=== PATIENT | female | born 1990 | race Caucasian/White ===

== ENCOUNTER → 2019-02-13 | Outpatient (REF) | payer OTHER ==
[2019-02-13 16:04] LABS: ALBUMIN 3.9 GM/DL (3.2-5.2); ALT/SGPT 38 U/L (12-78); BILIRUBIN,TOTAL 0.3 MG/DL (0.2-1.0); BLOOD UREA NITROGEN 8 MG/DL (7-18); CALCIUM LEVEL 9.3 MG/DL (8.5-10.1); CARBON DIOXIDE LEVEL 28 MEQ/L (21-32); CHLORIDE LEVEL 107 MEQ/L (98-107); CREATININE FOR GFR 0.86 MG/DL (0.55-1.30); FREE T4 1.02 NG/DL (0.76-1.46); GLOMERULAR FILTRATION RATE > 60.0 (>60); GLUCOSE, FASTING 83 MG/DL (70-100); SODIUM LEVEL 141 MEQ/L (136-145); TOTAL PROTEIN 7.4 GM/DL (6.4-8.2)
[2019-02-13 16:10] LABS: HEMATOCRIT 42.1 % (36.0-47.0); HEMOGLOBIN 13.8 g/dl (12.0-15.5); MEAN CORPUSCULAR HGB CONC 32.8 g/dl (32.0-36.5); MEAN CORPUSCULAR VOLUME 85.4 fl (80.0-96.0); PLATELET COUNT, AUTOMATED 339 10^3/uL (150-450); RED BLOOD COUNT 4.93 10^6/uL (4.00-5.40); WHITE BLOOD COUNT 9.3 10^3/uL (4.0-10.0)
== END ==
LOC: M SFHCPLAZ 14:40
PROVIDERS: ATTEND Nurse Practitioner Family
DX: Z13.228 Encounter for screening for other metabolic disorders (principal); Z78.9 Other specified health status
CPT/HCPCS: 36415; 80053; 84439; 84443; 85027; 96372; G0463; J1050

== ENCOUNTER → 2019-08-15 | Outpatient (REF) | payer OTHER | LOC: M SFHCPLAZ 15:17 | PROVIDERS: ATTEND Nurse Practitioner Family | DX: Z12.4 Encounter for screening for malignant neoplasm of cervix (principal); R87.610 Atypical squamous cells of undetermined significance on cytologic smear of cervix (ASC-US) | CPT/HCPCS: 87624; 96372; G0123; G0463; J1050 ==

== ENCOUNTER → 2020-05-24 | Outpatient (CLI) | payer OTHER ==
[~2020-05-24] MED LIST: DEPO150I12 IM; IBUP80TA PO; MELA3TAB49 PO; OXYC1TAB23 PO
== END ==
LOC: M LABSMTC 08:38
PROVIDERS: ATTEND Anesthesiology
DX: Z01.812 Encounter for preprocedural laboratory examination (principal); Z20.828 Contact with and (suspected) exposure to other viral communicable diseases

== ENCOUNTER 2020-05-28 06:09 | Day surgery (SDC) | payer OTHER ==
[~2020-05-28] VITALS: Ht 165.1 cm; Wt 85.3 kg
[~2020-05-28 06:09] MED LIST changes: -IBUP80TA PO; -OXYC1TAB23 PO
[2020-05-28 07:00] LABS: HEMATOCRIT 43.3 % (36.0-47.0); HEMOGLOBIN 13.8 g/dl (12.0-15.5); MEAN CORPUSCULAR HEMOGLOBIN 27.1 pg (27.0-33.0); MEAN CORPUSCULAR HGB CONC 31.9 g/dl (32.0-36.5); MEAN CORPUSCULAR VOLUME 84.9 fl (80.0-96.0); PLATELET COUNT, AUTOMATED 346 10^3/uL (150-450); WHITE BLOOD COUNT 7.3 10^3/uL (4.0-10.0)
[2020-05-28] MEDS ORDERED: LR 1,000 ML IV ONE (07:00)
[2020-05-28] MEDS ORDERED: ROCURONIUM BROMIDE 50 MG/5 ML VIAL As Ordered ONE (07:21)
[2020-05-28] MEDS ORDERED: dexameTHASONE 4 MG/ML 1ML VIAL (J1100 PER 1MG) As Ordered ONE (07:21)
[2020-05-28] MEDS ORDERED: propofoL 200 MG/20 ML VIAL As Ordered ONE (07:21)
[2020-05-28] MEDS ORDERED: LIDOCAINE 2% 100MG/5ML SDV (FOR ANES.) As Ordered ONE (07:21)
[2020-05-28] MEDS ORDERED: ONDANSETRON 4MG/2ML VIAL As Ordered ONE (07:21)
[2020-05-28] MEDS ORDERED: MIDAZOLAM INJ 2MG/2ML VIAL (J2250 PER 1MG) As Ordered ONE (07:22)
[2020-05-28] MEDS ORDERED: fentaNYL 100 MCG/2 ML INJECTION (J3010) As Ordered ONE (07:22)
[2020-05-28 07:36] LABS: HCG, SERUM QUALITATIVE NEGATIVE (NEGATIVE)
[2020-05-28] MEDS ORDERED: BUPIVACAINE HCL 0.25% 10ML VIAL As Ordered ONE (07:51)
[2020-05-28] MEDS ORDERED: LACRILUBE (AKWA TEARS) OPHTH OINT 3.5 GM As Ordered ONE (08:16)
[2020-05-28] MEDS ORDERED: ACETAMINOPHEN 1000MG 100ML IV BTL (OFIRMEV) (J0131 PER 10MG) As Ordered ONE (08:29)
[2020-05-28] MEDS ORDERED: SUGAMMADEX SODIUM 500 MG/5 ML VIAL (BRIDION) As Ordered ONE (08:29)
[2020-05-28] MEDS ORDERED: HYDROmorphone HCL 2 MG/ML 1ML VIAL (J1170) As Ordered ONE (08:29)
[2020-05-28] MEDS ORDERED: KETOROLAC 60MG 2ML VIAL As Ordered ONE (08:30)
--- NOTE | 2020-05-28 09:18 | ROOPDOC ---
[facility] Report Of Operation Report of Operation Date of procedure: 05/28/2020 Preoperative diagnosis: Satisfied parity. Postoperative diagnosis: Same Procedure: Laparoscopic bilateral salpingectomy Anesthesia: Gen. endotracheal Estimated blood loss 10 mL IV fluids replaced 700 mL lactated Ringer's Drains: In and out catheter 200 mL of urine Complications: None Preoperative antibiotics: None indicated Specimens: Bilateral fallopian tubes Intraoperative findings: Normal size, shape, contour of the uterus. Normal adnexa/ovaries bilaterally. Procedure: The patient was counseled and consented on the risks, benefits, indications, and alternatives of the procedure. Informed consent was obtained. She was taken to the operating room with an IV running. She was placed on the operating table in the dorsal supine position. Gen. anesthesia was administered and the airway was secured without any difficulty. A timeout was performed per protocol. She was prepared and draped in the normal sterile fashion. Attention was turned to the pelvis. The bladder was drained with in and out sterile catheter. A speculum was placed into the vagina with good visualization of the cervix. A single- tooth tenaculum was placed on the anterior lip of the cervix and downward traction was applied. The cervix was sequentially dilated with Casey dilators up to a #16. A ZUMI uterine manipulator was placed without any difficulty. The single-tooth tenaculum was removed. The tenaculum sites were noted to be hemostatic. A sterile glove switch was performed. Attention was turned to the abdomen. A 5mm umbilical incision was made with the 11 blade. Through this incision, a Veress needle was placed into the intraperitoneal cavity. Intraperitoneal placement was confirmed with ease of flow of normal saline, a positive drop test and no return on aspiration. The opening pressure was 2 mmHg. The abdomen was insufflated with 2 L of CO2. The Veress needle was removed. A 5 mm laparoscopic trocar was placed under direct visualization without any difficulty, and intraperitoneal placement was confirmed. No incidental bleeding or injury was evident. The patient was placed in steep Trendelenburg. 2 additional laparoscopic port sites were placed through 5 mm incisions in the lower left quadrant. Each trocar/cannula was placed under direct visualization without any difficulty, incidental bleeding or injury. Attention was turned to the right fallopian tube. The right fallopian tube was followed out to the fimbriated end, grasped and elevated. The underlying mesosalpinx was sequentially clamped, coagulated and transected, until the level of the cornu was reached. At this level, the fallopian tube was clamped, coagulated and transected, thus amputating the fallopian tube. The fallopian tube was brought through the cannula without any difficulty and sent to pathology for permanent section. Attention was turned to the left fallopian tube. The left fallopian tube was followed out to the fimbriated end, grasped and elevated. The underlying mesosalpinx was sequentially clamped, coagulated and transected, until the level of the cornu was reached. At this level the fallopian tube was clamped, coagulated and transected, thus amputating the fallopian tube. The fallopian tube was brought to the cannula without any difficulty and sent to pathology for permanent section. Both right and left surgical sites were noted to be completely hemostatic. The gas was released from the abdomen. The patient was taken out of Trendelenburg position. The cannulas were removed. The skin incisions were closed with 4-0 Monocryl in subcuticular fashion and reinforced with Dermabond. The uterine manipulator was removed, the vagina was noted to be clear of any sponge or instrument. Sponge, needle and instrument counts were correct per protocol. The patient tolerated the entire procedure very well. She was transferred to the PACU in good and stable condition. DO EL Bahena JONATHAN R. DO May 28, 2020 09:17
[2020-05-28] MEDS ORDERED: LR 1,000 ML IV SCH ×2 (09:30→09:45)
[2020-05-28] MEDS ORDERED: fentaNYL 100 MCG/2 ML INJECTION (J3010) IV PRN (09:30)
[2020-05-28] MEDS ORDERED: ONDANSETRON 4MG/2ML VIAL IV PRN (09:30)
[2020-05-28] MEDS ORDERED: oxyCODONE 5MG TAB PO PRN (09:30)
[2020-05-28] MEDS ORDERED: IBUP80TA PO (10:55)
[2020-05-28] MEDS ORDERED: OXYC1TAB23 PO (10:56)
[2020-05-28] MEDS ORDERED: METOCLOPRAMIDE INJ 10MG/2ML VIAL (J2765 PER 1) As Ordered ONE (11:00)
[2020-05-28] MEDS ORDERED: METOCLOPRAMIDE INJ 10MG/2ML VIAL (J2765 PER 1) IV ONE (11:15)
== END 2020-05-28 11:56 | disposition home or self-care (01) ==
LOC: M SDC 06:09
PROVIDERS: ATTEND Obstetrics & Gynecology
DX: Z30.2 Encounter for sterilization (principal); R10.2 Pelvic and perineal pain; Z79.899 Other long term (current) drug therapy; F84.5 Asperger's syndrome
CPT/HCPCS: 36415; 58661; 84703; 85027; 86850; 86900; 86901; 88302; J0131; J1100; J1170; J1885; J2250; J2405; J2765; J3010

== ENCOUNTER → 2020-07-31 | Outpatient (CLI) | payer OTHER ==
[~2020-07-31] MED LIST changes: +IBUP80TA PO; +OXYC1TAB23 PO
--- NOTE | 2020-08-07 07:46 | REP ---
INDICATION: PERIUMBICAL PAIN, POST SURGERY COMPARISON: None available. TECHNIQUE: Axial noncontrast images from the lung bases to the pubic symphysis with coronal and sagittal reformations. This CT examination was performed using the following dose reduction techniques: Automated exposure control, adjustment of mA and/or kv according to the patient's size, and use of iterative reconstruction technique. FINDINGS: Lung bases are clear. Visualized heart and pericardium normal. Liver, spleen, pancreas, gallbladder, bilateral adrenal glands and kidneys are normal. The enteric system is unremarkable and without obstruction or acute inflammatory process. Normal terminal ileum and appendix identified in the right lower quadrant. 2 cm fat containing periumbilical hernia noted without acute abnormality. Pelvis demonstrates normal bladder and age-appropriate uterus/adnexa. No ascites. No free air. No adenopathy. No focal inflammatory stranding. Abdominal aorta without aneurysm. Musculoskeletal structures are intact and without acute osseous abnormality. IMPRESSION: No acute abdominopelvic pathology appreciated. 2 cm fat containing periumbilical hernia. <Electronically signed by Michael Simpson > 08/07/20 [id number]
== END ==
LOC: M RAD 14:11
PROVIDERS: ATTEND Obstetrics & Gynecology
DX: Z48.816 Encounter for surgical aftercare following surgery on the genitourinary system (principal); K42.9 Umbilical hernia without obstruction or gangrene

== ENCOUNTER → 2020-08-15 | Outpatient (CLI) | payer SELFPAY | LOC: M LABSMTC 13:05 | PROVIDERS: ATTEND Pediatrics | DX: Z20.822 Contact with and (suspected) exposure to COVID-19 (principal) ==

== ENCOUNTER → 2020-10-17 | Outpatient (REF) | payer OTHER | LOC: M SFHCWAGY 13:37 | PROVIDERS: ATTEND Obstetrics & Gynecology | DX: Z12.4 Encounter for screening for malignant neoplasm of cervix (principal) | CPT/HCPCS: 87624; G0123 ==

== ENCOUNTER → 2020-12-17 | Outpatient (CLI) | payer OTHER | LOC: M LABSMTC 09:38 | PROVIDERS: ATTEND Anesthesiology | DX: Z01.812 Encounter for preprocedural laboratory examination (principal); Z20.822 Contact with and (suspected) exposure to COVID-19 ==

== ENCOUNTER → 2020-12-18 | Outpatient (REF) | payer OTHER ==
[2020-12-18 13:58] LABS: HEMATOCRIT 46.7 % (36.0-47.0); HEMOGLOBIN 15.2 g/dl (12.0-15.5); MEAN CORPUSCULAR HEMOGLOBIN 28.1 pg (27.0-33.0); MEAN CORPUSCULAR HGB CONC 32.5 g/dl (32.0-36.5); MEAN CORPUSCULAR VOLUME 86.3 fl (80.0-96.0); PLATELET COUNT, AUTOMATED 387 10^3/uL (150-450); RED BLOOD COUNT 5.41 10^6/uL (4.00-5.40); WHITE BLOOD COUNT 9.6 10^3/uL (4.0-10.0)
[2020-12-18 14:09] LABS: BLOOD UREA NITROGEN 12 MG/DL (7-18); CALCIUM LEVEL 9.5 MG/DL (8.5-10.1); CARBON DIOXIDE LEVEL 28 MEQ/L (21-32); CHLORIDE LEVEL 105 MEQ/L (98-107); CREATININE FOR GFR 0.88 MG/DL (0.55-1.30); GLOMERULAR FILTRATION RATE > 60.0 (>60); GLUCOSE, FASTING 85 MG/DL (70-100); POTASSIUM SERUM 4.7 MEQ/L (3.5-5.1); SODIUM LEVEL 138 MEQ/L (136-145)
[2020-12-18 14:46] LABS: HEMOGLOBIN A1c 5.4 %
== END ==
LOC: M SFHCPLAZ 10:08
PROVIDERS: ATTEND Family Medicine
DX: Z01.818 Encounter for other preprocedural examination (principal); Z13.1 Encounter for screening for diabetes mellitus
CPT/HCPCS: 36415; 80048; 83036; 85027; G0463

== ENCOUNTER 2020-12-22 12:54 | Day surgery (SDC) | payer OTHER ==
[~2020-12-22] VITALS: Ht 167.6 cm; Wt 98.9 kg
[~2020-12-22 12:54] MED LIST changes: +LR 1,000 ML IV ONE; +ceFAZolin SOD 2 GM in IV 1 EA IV ONE
[2020-12-22] MEDS ORDERED: BUPIVACAINE/EPIN 0.25% 30 ML VIAL As Ordered ONE (13:44)
[2020-12-22] MEDS ORDERED: KETOROLAC 60MG 2ML VIAL As Ordered ONE (14:12)
[2020-12-22] MEDS ORDERED: dexameTHASONE 4 MG/ML 1ML VIAL (J1100 PER 1MG) As Ordered ONE (14:12)
[2020-12-22] MEDS ORDERED: propofoL 200 MG/20 ML VIAL As Ordered ONE (14:12)
[2020-12-22] MEDS ORDERED: ACETAMINOPHEN 1000MG 100ML IV BTL (OFIRMEV) (J0131 PER 10MG) As Ordered ONE (14:12)
[2020-12-22] MEDS ORDERED: MIDAZOLAM INJ 2MG/2ML VIAL (J2250 PER 1MG) As Ordered ONE (14:12)
[2020-12-22] MEDS ORDERED: ONDANSETRON 4MG/2ML VIAL As Ordered ONE (14:12)
[2020-12-22] MEDS ORDERED: ROCURONIUM BROMIDE 50 MG/5 ML VIAL As Ordered ONE (14:12)
[2020-12-22] MEDS ORDERED: LIDOCAINE 2% 100MG/5ML SDV (FOR ANES.) As Ordered ONE (14:12)
[2020-12-22] MEDS ORDERED: METOCLOPRAMIDE INJ 10MG/2ML VIAL (J2765 PER 1) As Ordered ONE (14:12)
[2020-12-22] MEDS ORDERED: fentaNYL 100 MCG/2 ML INJECTION (J3010) As Ordered ONE (14:13)
[2020-12-22] MEDS ORDERED: SUGAMMADEX SODIUM 500 MG/5 ML VIAL (BRIDION) As Ordered ONE (14:15)
[2020-12-22] MEDS ORDERED: MEPERIDINE INJ 25 MG/ML VIAL (J2175) IV PRN (16:10)
[2020-12-22] MEDS ORDERED: ONDANSETRON 4MG/2ML VIAL IV PRN (16:10)
[2020-12-22] MEDS ORDERED: fentaNYL 100 MCG/2 ML INJECTION (J3010) IV PRN (16:10)
[2020-12-22] MEDS ORDERED: METOCLOPRAMIDE INJ 10MG/2ML VIAL (J2765 PER 1) IV PRN (16:10)
[2020-12-22] MEDS ORDERED: LR 1,000 ML IV SCH (16:10)
[2020-12-22] MEDS ORDERED: NORCO, ANEXSIA 5/325MG TABLET (HYDROcodone/ACETAMINOPHEN) PO PRN (16:10)
[2020-12-22] MEDS: oxyCODONE 5MG TAB PO PRN ×2 (16:21→17:15)
[2020-12-22 17:37] VITALS: BP 125/70
--- NOTE | 2020-12-23 08:38 | RO ---
OPERATIVE NOTE DATE OF OPERATION: 12/22/2020 PREOPERATIVE DIAGNOSIS: Incisional hernia. POSTOPERATIVE DIAGNOSIS: Incisional hernia. PROCEDURE: Robotic incisional hernia repair. SURGEON: Tejas Galicia DO SPAGHETTI PRESS HELPER: Danelle Juan ANESTHESIA: General. EBL: 5. COMPLICATIONS: None. INDICATIONS FOR PROCEDURE: The patient is a 30-year-old female who presents status post laparoscopic procedure with umbilical hernia at one of her port sites. Recommendation was to proceed with robotic repair of the hernia. Risks and benefits of the procedure including but not limited to bleeding, infection, hernia recurrence, hernia formation, damage to surrounding structures, need for further surgery was discussed in detail with the patient and informed consent was obtained, procedure was planned. DESCRIPTION OF PROCEDURE: The patient was brought into operating room 7. After sufficient sedation the abdomen was sterilely prepped and draped. Time out was done to confirm proper patient and proper procedure. Following that an 8 mm incision was made in left upper quadrant, Veress needle was inserted and abdomen insufflated with 15 mmHg. Veress needle was then removed and 8 mm Optiview port was used to gain access to the abdomen. Once the abdomen was entered two more ports were placed, one in subxiphoid to left of midline and one in the right upper quadrant. The robot was docked to the ports. From the console a horizontal supraumbilical midline incision was created through the peritoneum into preperitoneal space. The preperitoneal space was then dissected free inferiorly surrounding the hernia sac. The hernia sac was then completely reduced. Once that was completed the fascial defect was closed with running #0 Stratafix suture. This was then covered by 2 x 4 cm piece of ProGrip mesh and then peritoneum was closed over top of that using running 2-0 V-Loc suture. Once that was completed the abdomen was desufflated. Skin incisions were closed with 4-0 Vicryl subcuticular sutures. Abdomen was cleaned and dried, Steri-Strips, 4 x 4 and tape were applied. This ended the procedure.
== END 2020-12-22 17:38 | disposition home or self-care (01) ==
LOC: M SDC 12:54
PROVIDERS: ATTEND Surgery
DX: K43.2 Incisional hernia without obstruction or gangrene (principal); F84.0 Autistic disorder; F43.10 Post-traumatic stress disorder, unspecified; Z79.899 Other long term (current) drug therapy
CPT/HCPCS: 49654; C1781; J0131; J0690; J1100; J1885; J2250; J2405; J2765; J3010; S2900